=== PATIENT | male | born 1960 | race Caucasian/White ===

== ENCOUNTER 2017-10-08 10:21 | Inpatient (IN) | payer OTHER ==
[2017-10-06 14:27] LABS: BASOPHILS # (AUTO) 0.1 (0.0-0.1); EOSINOPHILS # (AUTO) 0.2 (0.0-0.4); EOSINOPHILS % 2.1 % (0.0-6.0); LYMPHOCYTES # (AUTO) 2.2 (1.0-3.2); LYMPHOCYTES % 19.9 % (18.0-39.1); MEAN CORPUSCULAR HGB CONC 33.3 g/dL (31-35); MONOCYTES # (AUTO) 1.1 (0.2-0.8); MONOCYTES % 10.2 % (4.4-11.3); NEUTROPHILS # (AUTO) 7.4 (2.1-6.9); NEUTROPHILS % 66.6 % (38.7-80.0); PLATELET COUNT 367 x10e3/uL (140-360); RED CELL DISTRIBUTION WIDTH 13.7 % (11.7-14.4)
[2017-10-06 14:45] LABS: BLOOD UREA NITROGEN 11 mg/dL (7-26); BUN/CREATININE RATIO 15 (6-25); CALCIUM 10.3 mg/dL (8.4-10.2); CARBON DIOXIDE 25 mmol/L (22-29); CHLORIDE 98 mmol/L (98-107); CREATININE, SERUM 0.72 mg/dL (0.72-1.25); EST GLOMERULAR FILTRATION RATE > 60 ML/MIN (60-); GLUCOSE 85 mg/dL (74-118); SODIUM 138 mmol/L (136-145)
[~2017-10-08] VITALS: Ht 170.2 cm; Wt 80.5 kg
[~2017-10-08 10:21] MED LIST: AMLODIPINE BESYL5 MG PO; ATORVASTATIN CA20 MG PO; AUGMENTIN 875-1 EACH PO; CYCLOBENZAPRINE10 MG PO; FOLIC ACID1 MG PO; FUROSEMIDE40 MG PO; GLIPIZIDE5 MG PO; KLOR-CON20 MEQ PO; LISINOPRIL10 MG PO; METFORMIN HCL500 MG PO; ULTRAM50 MG PO
[2017-10-08] MEDS ORDERED: CEFOXITIN SOD 1 GM VIAL ONE (10:35)
[2017-10-08] MEDS ORDERED: MORPHINE SULFATE 5 MG/ML VIAL IV PRN ×2 (16:30→20:30)
[2017-10-08] MEDS ORDERED: DEXTROSE 50% SYRINGE 50 ML IV PRN (17:00)
[2017-10-08 17:02] VITALS: BP 141/74
[2017-10-08 17:05] VITALS: BP 133/67
[2017-10-08] MEDS ORDERED: MIDAZOLAM HCL 2 MG/2 ML VIAL ONE (17:50)
[2017-10-08] MEDS ORDERED: FENTANYL CITRATE/PF 100MCG/2 ML INJ ONE (17:50)
[2017-10-08] MEDS ORDERED: MORPHINE SULFATE INJ 10 MG/ML ONE (17:53)
[2017-10-08] MEDS: LACTATED RINGER'S 1,000 ML IV SCH ×2 (18:07→21:09)
[2017-10-08] MEDS ORDERED: DEXAMETHASONE SOD PHOS INJ 4 MG/ML VIAL ONE (18:34)
[2017-10-08] MEDS ORDERED: ONDANSETRON HCL INJ 2 MG/ML VIAL ONE (18:34)
[2017-10-08] MEDS ORDERED: LIDOCAINE HCL 2% LOCAL INJ 5 ML SDV VIAL INJ ONE (18:34)
[2017-10-08] MEDS ORDERED: ACETAMINOPHEN 1000 MG/100 ML IV ONE (18:34)
[2017-10-08] MEDS ORDERED: SEVOFLURANE INHAL SOLN 250 ML PEN BTL ONE (18:34)
[2017-10-08] MEDS ORDERED: PROPOFOL IV EMULSION 10 MG/ML 20 ML VIAL ONE (18:34)
[2017-10-08 20:00] VITALS: BP 126/64
--- NOTE | 2017-10-08 20:21 | Operative Report ---
DATE OF PROCEDURE: October 08, 2017 PREOPERATIVE DIAGNOSIS: Ischemic right dnxud-ucq-kuzb amputation stump. POSTOPERATIVE DIAGNOSIS: Ischemic right genwt-kph-zziy amputation stump. OPERATIVE PROCEDURE: Right qbrcu-ezo-zwrd amputation. SPORTS CLERK: None. ANESTHESIA: General endotracheal. INDICATION FOR SURGERY: A 57-year-old male with history of ischemic right lower extremity with poor outflow in the right leg vasculature below the knee. Patient underwent right soayx-uhd-ubwj amputation 2 months ago complicated by wound dehiscence and infection. Patient has consented for right lltbn-wkw-pyfh amputation with all attendant risks discussed. PROCEDURE FINDINGS: Warm skin with some bleeding at the buqxi-pyu-rnck level amputation indicating adequate flow to the muscular tissue. DESCRIPTION OF PROCEDURE: The patient was brought to the OR intubated. The right leg is prepped from the upper thigh to the BKA stump area with a tourniquet in place. We then proceeded to make a fishmouth incision just above the knee cap using knife extending the incisions through skin and soft tissue. We then used cautery to divide the anterior musculature and tendons and dissection is carried down to the femur. Using blunt and sharp dissection, the femur is delineated circumferentially approximately 3 to 4 cm above the level of the skin incision and using a Gigli saw the femur is transected perpendicularly to the long axis. At this point, the medial musculature is divided with cautery through muscular tissue and tendons. The vein is ligated between silk ties and divided. The posterior flap is also created with skin and soft tissue cutting with a knife. We then proceeded to control the popliteal and distal femoral artery and vein with Endo YOSELIN stapler vascular load. Dissection is carried out posteriorly through the posterior musculature. The sciatic nerve is allowed to retract after ligation with stitch tie of 2-0 silk. After the skin is divided posteriorly, the specimen delivered off the field. Hemostasis achieved with cautery and suture ligature of 3-0 silk stitches. We then proceeded to irrigate the wound with saline solution and closed the fascia in a transverse direction approximating the posterior to the anterior fascia with interrupted 2-0 Vicryl stitches. A 15-Tajik Tteo drain has been placed in the deep space of the operative field and taken out through a separate stab wound incision laterally. Skin is closed with staple. Patient then underwent a fluffy wrap of the AKA stump. He was then extubated and transported to the recovery room in guarded condition. Estimated blood loss 50 mL. Job#: [id number] GH
[2017-10-08] MEDS: ATORVASTATIN 40 MG TAB PO SCH (21:00)
[2017-10-08] MEDS: CEFAZOLIN SOD 1 GM VIAL IV SCH (21:09)
[2017-10-08] MEDS: MORPHINE SULFATE INJ 4 MG/ML INJ IV PRN (21:09)
[2017-10-08] MEDS: INSULIN LISPRO 100 UNIT/1 ML 3ML VIAL SQ SCH (21:16)
[2017-10-08] MEDS ORDERED: CEFAZOLIN SOD 1 GM/D5W 50ML 50 ML IV SCH (22:00)
[2017-10-08] MEDS: TRAMADOL HCL 50 MG TAB PO PRN (22:21)
[2017-10-09] VITALS (10 sets, daily range): BP systolic 103–128; BP diastolic 56–82
[2017-10-09] MEDS: LACTATED RINGER'S 1,000 ML IV SCH (04:32)
[2017-10-09] MEDS: MORPHINE SULFATE INJ 4 MG/ML INJ IV PRN ×4 (04:32→19:45)
[2017-10-09] MEDS: CEFAZOLIN SOD 1 GM VIAL IV SCH ×3 (05:28→21:10)
[2017-10-09 06:06] LABS: BASOPHILS # (AUTO) 0.1 (0.0-0.1); BASOPHILS % 0.6 % (0.0-1.0); EOSINOPHILS # (AUTO) 0.1 (0.0-0.4); HEMATOCRIT 33.2 % (38.2-49.6); HEMOGLOBIN 11.1 g/dL (14.0-18.0); LYMPHOCYTES # (AUTO) 1.4 (1.0-3.2); MEAN CORPUSCULAR HEMOGLOBIN 27.5 pg (28-32); MEAN CORPUSCULAR HGB CONC 33.4 g/dL (31-35); MEAN CORPUSCULAR VOLUME 82.2 fL (81-99); MONOCYTES # (AUTO) 1.1 (0.2-0.8); MONOCYTES % 10.8 % (4.4-11.3); NEUTROPHILS # (AUTO) 7.7 (2.1-6.9); NEUTROPHILS % 74.2 % (38.7-80.0); PLATELET COUNT 265 x10e3/uL (140-360); RED BLOOD COUNT 4.04 x10e6/uL (4.3-5.7); RED CELL DISTRIBUTION WIDTH 13.7 % (11.7-14.4)
[2017-10-09 06:33] LABS: BLOOD UREA NITROGEN 8 mg/dL (7-26); BUN/CREATININE RATIO 12 (6-25); CALCIUM 9.1 mg/dL (8.4-10.2); CARBON DIOXIDE 26 mmol/L (22-29); CHLORIDE 97 mmol/L (98-107); CREATININE, SERUM 0.65 mg/dL (0.72-1.25); EST GLOMERULAR FILTRATION RATE > 60 ML/MIN (60-); GLUCOSE 131 mg/dL (74-118); SODIUM 133 mmol/L (136-145)
[2017-10-09] MEDS: GLIPIZIDE 5 MG TAB PO SCH (08:37)
[2017-10-09] MEDS: INSULIN LISPRO 100 UNIT/1 ML 3ML VIAL SQ SCH ×4 (08:37→20:41)
[2017-10-09] MEDS: METFORMIN HCL 500 MG TAB PO SCH ×2 (08:37→17:19)
[2017-10-09] MEDS: CYCLOBENZAPRINE HCL 10 MG TAB PO SCH (08:37)
[2017-10-09] MEDS: POTASSIUM CHLORIDE 10 MEQ TABCR PO SCH (08:38)
[2017-10-09] MEDS: FOLIC ACID 1 MG TAB PO SCH (08:38)
[2017-10-09] MEDS: AMLODIPINE BESYLATE 5 MG TAB PO SCH (08:38)
[2017-10-09] MEDS: LISINOPRIL 20 MG TAB PO SCH (08:38)
[2017-10-09] MEDS: NICOTINE 21 MG/EA PATCH TOP SCH (10:37)
--- NOTE | 2017-10-09 10:44 | Diagnostic Imaging Report ---
PROCEDURE:ANKLE 3+ VIEWS LEFT TECHNIQUE: AP, oblique, and lateral radiographs of the left ankle were obtained INDICATION: Left ankle pain COMPARISON:None. FINDINGS: No evidence of fracture or malalignment. The ankle mortise is maintained. Small well-corticated bony protuberance along the medial malleolus may reflect sequela of old trauma or a small osteochondroma. The joint spaces are maintained. CONCLUSION: No acute osseous abnormality. Possible old post traumatic deformity or small osteochondroma along the medial malleolus. Correlation of pain at this site would be helpful. Dictated by: PAM JIMENEZ M.D. on 10/09/2017 at 10:50 Electronically approved by: PAM JIMENEZ M.D. on 10/09/2017 at 10:50
--- NOTE | 2017-10-09 11:23 | Consultation ---
DATE OF CONSULTATION: October 09, 2017 REASON FOR CONSULTATION: Diabetes management. HISTORY OF PRESENT ILLNESS: This is a 57-year-old male with peripheral vascular disease, diabetic, and unfortunately still smokes, had a right vyxad-eqt-vcfj amputation 2 weeks ago; however, it never healed, continued to have drainage, although he denies any fever. No nausea, vomiting. No chest pain. No shortness of breath. Therefore, patient was electively admitted yesterday and underwent uncomplicated right qnnax-zuo-gvka amputation. At home, patient was favoring his left leg when doing his transferring and for the last 10 days, patient has had increased left ankle swelling and pain. He did have left ankle surgery about 30 years ago. PAST MEDICAL AND SURGICAL HISTORY 1. Diabetes. 2. Hypertension. 3. Dyslipidemia. 4. Peripheral vascular disease. SOCIAL HISTORY: Still smokes. FAMILY HISTORY: Positive for diabetes. MEDICATIONS: Please see medication reconciliation form. ALLERGIES: NONE. REVIEW OF SYSTEMS: A 10-point review of system reviewed and they are unremarkable except for what stated in HPI. PHYSICAL EXAMINATION VITAL SIGNS: Temperature 96.4, pulse 84, respiratory rate 19, blood pressure 128/82. GENERAL: No acute distress. SKIN: No rash. HEENT: Oropharynx is clear. Anicteric. NECK: Supple. LUNGS: Clear anteriorly bilaterally. HEART: Regular rate and rhythm. Normal S1 and S2. GI: Abdomen is soft, nondistended and nontender. : Deferred. EXTREMITIES: Left ankle with some nonpitting edema. MUSCULOSKELETAL: Decreased range of motion noted at the left ankle. NEUROLOGICAL: Alert and oriented x3. Cranial nerves II-XII are grossly intact. PSYCHIATRIC: No hallucination. LABORATORY: Sodium 133, creatinine 0.65, sugar 131. White count of 10.4; hemoglobin 11.1, it was 14 yesterday; platelet count 265. ASSESSMENT AND PLAN 1. Diabetes, currently decent control. We will continue his metformin and glipizide and also continue his sliding scale. We will continue to monitor. 2. Postop day #1 for right above-knee amputation. We will continue IV morphine as needed for pain. He also has tramadol. Patient is also on Ancef per Dr. Brady. I spoke to both Dr. Brady and the patient. I would also look in to see whether he qualifies for inpatient rehab given his right above-knee amputation. 3. Dyslipidemia, continue Lipitor. 4. Peripheral vascular disease, smoking cessation advised, was discussed with the patient. We will start nicotine patch. 5. Gastrointestinal and deep vein thrombosis prophylaxis. No chemical deep vein thrombosis prophylaxis, given a slight drop in hemoglobin. We will continue to monitor, make sure he has no acute blood loss anemia. 6. Hyponatremia, very mild, asymptomatic, likely due to pain. 7. Left ankle pain, likely inflammation. I will get an x-ray to make sure there is no bony abnormality. Thank you very much for this consultation. We will continue to follow with you closely. Please call with any questions. Job#: [id number] SUB
[2017-10-09] MEDS: TRAMADOL HCL 50 MG TAB PO PRN (14:51)
[2017-10-09] MEDS: ATORVASTATIN 40 MG TAB PO SCH (20:15)
[2017-10-10] VITALS (7 sets, daily range): BP systolic 114–130; BP diastolic 58–71
[2017-10-10] MEDS: MORPHINE SULFATE INJ 4 MG/ML INJ IV PRN ×4 (04:15→12:20)
[2017-10-10] MEDS: CEFAZOLIN SOD 1 GM VIAL IV SCH ×3 (04:52→20:51)
[2017-10-10 06:02] LABS: BASOPHILS # (AUTO) 0.1 (0.0-0.1); BASOPHILS % 0.6 % (0.0-1.0); EOSINOPHILS # (AUTO) 0.2 (0.0-0.4); EOSINOPHILS % 1.6 % (0.0-6.0); HEMATOCRIT 34.6 % (38.2-49.6); HEMOGLOBIN 11.3 g/dL (14.0-18.0); LYMPHOCYTES # (AUTO) 1.7 (1.0-3.2); LYMPHOCYTES % 16.7 % (18.0-39.1); MEAN CORPUSCULAR HEMOGLOBIN 27.1 pg (28-32); MEAN CORPUSCULAR HGB CONC 32.7 g/dL (31-35); MONOCYTES # (AUTO) 1.1 (0.2-0.8); MONOCYTES % 10.8 % (4.4-11.3); NEUTROPHILS # (AUTO) 7.1 (2.1-6.9); PLATELET COUNT 292 x10e3/uL (140-360); RED BLOOD COUNT 4.17 x10e6/uL (4.3-5.7); RED CELL DISTRIBUTION WIDTH 13.8 % (11.7-14.4)
[2017-10-10 06:18] LABS: ANION GAP 15.1 mmol/L (8-16); BLOOD UREA NITROGEN 9 mg/dL (7-26); BUN/CREATININE RATIO 14 (6-25); CALCIUM 9.5 mg/dL (8.4-10.2); CARBON DIOXIDE 24 mmol/L (22-29); CHLORIDE 99 mmol/L (98-107); CREATININE, SERUM 0.63 mg/dL (0.72-1.25); EST GLOMERULAR FILTRATION RATE > 60 ML/MIN (60-); GLUCOSE 136 mg/dL (74-118); POTASSIUM 4.1 mmol/L (3.5-5.1); SODIUM 134 mmol/L (136-145)
[2017-10-10] MEDS: INSULIN LISPRO 100 UNIT/1 ML 3ML VIAL SQ SCH ×4 (08:13→20:43)
[2017-10-10] MEDS: CYCLOBENZAPRINE HCL 10 MG TAB PO SCH (08:13)
[2017-10-10] MEDS: GLIPIZIDE 5 MG TAB PO SCH (08:13)
[2017-10-10] MEDS: FOLIC ACID 1 MG TAB PO SCH (08:13)
[2017-10-10] MEDS: METFORMIN HCL 500 MG TAB PO SCH ×2 (08:13→16:50)
[2017-10-10] MEDS: LISINOPRIL 20 MG TAB PO SCH (08:13)
[2017-10-10] MEDS: AMLODIPINE BESYLATE 5 MG TAB PO SCH (08:13)
[2017-10-10] MEDS: POTASSIUM CHLORIDE 10 MEQ TABCR PO SCH (08:13)
[2017-10-10] MEDS: NICOTINE 21 MG/EA PATCH TOP SCH (08:13)
[2017-10-10] MEDS: VARENICLINE 1 MG TAB PO SCH (14:32)
[2017-10-10] MEDS: CYCLOBENZAPRINE HCL 10 MG TAB PO PRN (14:32)
[2017-10-10] MEDS: ACETAMINOPHEN/CODEINE 300MG - 30MG TAB PO PRN ×2 (16:58→20:52)
[2017-10-10] MEDS: ATORVASTATIN 40 MG TAB PO SCH (20:49)
[2017-10-11] VITALS (7 sets, daily range): BP systolic 112–154; BP diastolic 65–87
[2017-10-11] MEDS: MORPHINE SULFATE INJ 4 MG/ML INJ IV PRN (00:17)
[2017-10-11] MEDS: ACETAMINOPHEN/CODEINE 300MG - 30MG TAB PO PRN ×4 (04:17→21:01)
[2017-10-11] MEDS: CEFAZOLIN SOD 1 GM VIAL IV SCH ×3 (05:22→21:01)
[2017-10-11] MEDS: INSULIN LISPRO 100 UNIT/1 ML 3ML VIAL SQ SCH ×4 (08:00→20:57)
[2017-10-11] MEDS: GLIPIZIDE 5 MG TAB PO SCH (08:21)
[2017-10-11] MEDS: POTASSIUM CHLORIDE 10 MEQ TABCR PO SCH (08:21)
[2017-10-11] MEDS: FOLIC ACID 1 MG TAB PO SCH (08:21)
[2017-10-11] MEDS: METFORMIN HCL 500 MG TAB PO SCH ×2 (08:21→16:59)
[2017-10-11] MEDS: LISINOPRIL 20 MG TAB PO SCH (08:21)
[2017-10-11] MEDS: AMLODIPINE BESYLATE 5 MG TAB PO SCH (08:21)
[2017-10-11] MEDS: VARENICLINE 1 MG TAB PO SCH (08:21)
[2017-10-11] MEDS: CYCLOBENZAPRINE HCL 10 MG TAB PO PRN (13:19)
[2017-10-11] MEDS: ATORVASTATIN 40 MG TAB PO SCH (20:58)
[2017-10-11] MEDS ORDERED: TAMSULOSIN HCL 0.4 MG CAP PO SCH (21:00)
[2017-10-12] VITALS (8 sets, daily range): BP systolic 135–150; BP diastolic 65–77
[2017-10-12] MEDS: CEFAZOLIN SOD 1 GM VIAL IV SCH ×2 (05:00→14:00)
[2017-10-12] MEDS: ACETAMINOPHEN/CODEINE 300MG - 30MG TAB PO PRN (05:02)
[2017-10-12] MEDS: AMLODIPINE BESYLATE 5 MG TAB PO SCH (09:16)
[2017-10-12] MEDS: METFORMIN HCL 500 MG TAB PO SCH ×2 (09:16→16:26)
[2017-10-12] MEDS: FOLIC ACID 1 MG TAB PO SCH (09:16)
[2017-10-12] MEDS: VARENICLINE 1 MG TAB PO SCH (09:16)
[2017-10-12] MEDS: GLIPIZIDE 5 MG TAB PO SCH (09:16)
[2017-10-12] MEDS: LISINOPRIL 20 MG TAB PO SCH (09:18)
[2017-10-12] MEDS: POTASSIUM CHLORIDE 10 MEQ TABCR PO SCH (09:18)
[2017-10-12] MEDS: INSULIN LISPRO 100 UNIT/1 ML 3ML VIAL SQ SCH ×3 (09:35→16:26)
[2017-10-12] MEDS: CYCLOBENZAPRINE HCL 10 MG TAB PO PRN (10:46)
[2017-10-12] MEDS ORDERED: GABAPENTIN300 MG PO (16:04)
[2017-10-12] MEDS ORDERED: FLOMAX0.4 MG PO (16:09)
[2017-10-13] MEDS ORDERED: VARENICLINE 1 MG TAB PO SCH (09:00)
== END 2017-10-12 18:01 | disposition home or self-care (01) | DRG 240 ==
LOC: OR 10:21 → PACU V 15:13 → MED/SURG 16:10
PROVIDERS: ADMIT Surgery; ATTEND Surgery
PROC: 0Y6C0Z1 Detachment at Right Upper Leg, High, Open Approach (ICD-10-PCS; principal; 2017-10-08 12:30)
DX: E11.51 Type 2 diabetes mellitus with diabetic peripheral angiopathy without gangrene (principal); T87.43 Infection of amputation stump, right lower extremity; E87.1 Hypo-osmolality and hyponatremia; I70.223 Atherosclerosis of native arteries of extremities with rest pain, bilateral legs; T87.81 Dehiscence of amputation stump; Z79.4 Long term (current) use of insulin; Z87.891 Personal history of nicotine dependence; E78.5 Hyperlipidemia, unspecified; F17.210 Nicotine dependence, cigarettes, uncomplicated; N40.1 Benign prostatic hyperplasia with lower urinary tract symptoms; R33.8 Other retention of urine; M25.572 Pain in left ankle and joints of left foot
CPT/HCPCS: 36415; 80048; 82948; 85025; 88307; 93005; 97139; J0690; J0694; J1100; J2001; J2250; J2270; J2405; J7120